=== PATIENT | male | born 1955 | race Caucasian/White ===

== ENCOUNTER 2021-06-12 20:43 | Emergency (ER) | payer OTHER, MEDICARE ==
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
== END 2021-06-12 22:36 | disposition home or self-care (01) ==
LOC: JP.ED 20:43
DX: S22.42XA Multiple fractures of ribs, left side, initial encounter for closed fracture (principal); Z98.2 Presence of cerebrospinal fluid drainage device; Z79.899 Other long term (current) drug therapy; Z79.84 Long term (current) use of oral hypoglycemic drugs; Z72.0 Tobacco use; V57.5XXA Driver of pick-up truck or van injured in collision with fixed or stationary object in traffic accident, initial encounter; Y92.410 Unspecified street and highway as the place of occurrence of the external cause
CPT/HCPCS: 71250; 99284-25

== ENCOUNTER 2022-07-29 07:15 | Day surgery (SDC) | payer MEDICARE ==
[2022-07-29] MEDS ORDERED: fentaNYL 50 MCG/ML SDV ONE (07:27)
[2022-07-29] MEDS ORDERED: Propofol 200 MG/20 ML SDV ONE (07:27)
[2022-07-29] MEDS ORDERED: Sodium Chloride 0.9% 1,000 ML IV SCH (07:30)
[2022-07-29] MEDS ORDERED: ceFAZolin 2 GM in Premix Bag 1 BAG IV STA (08:08)
[2022-07-29] MEDS ORDERED: ceFAZolin 2 GM in Sodium Chloride 0.9% 50 ML IV ONE (08:15)
== END 2022-07-29 10:10 | disposition home or self-care (01) ==
LOC: JP.SDS 07:15
PROVIDERS: ATTEND Surgery
DX: Z12.11 Encounter for screening for malignant neoplasm of colon (principal); D12.3 Benign neoplasm of transverse colon; I10 Essential (primary) hypertension; E78.00 Pure hypercholesterolemia, unspecified; E11.9 Type 2 diabetes mellitus without complications; F17.200 Nicotine dependence, unspecified, uncomplicated; J44.9 Chronic obstructive pulmonary disease, unspecified; Z79.899 Other long term (current) drug therapy
CPT/HCPCS: 45380; J0690; J2704; J3010; J3490; J7030; 88305